=== PATIENT | male | born 1950 | race Caucasian/White ===

== ENCOUNTER 2021-04-03 15:14 | Outpatient (REF) | payer MEDICARE, SELFPAY ==
[2021-04-03 16:08] LABS: Bilirubin Negative (Negative); Blood Negative (Negative); Clarity Clear (Clear); Glucose Negative (Negative); Ketones Negative (Negative); Leukocyte Esterase Negative (Negative); Nitrite Negative (Negative); Specific Gravity >= 1.030 (1.005-1.025); Urobilinogen 0.2 EU/dL (Up TO 0.2); pH 5.5 (5-8)
[2021-04-03 16:45] LABS: COMMENT (LAB VIEW ONLY) 142.16 mg/dL; Microalb ug/mg Crea 11.3 ug/mg Cr
[2021-04-03 17:04] LABS: ALT 30 U/L (16-63); AST 17 U/L (15-37); Albumin 3.5 g/dL (3.4-5.0); Alkaline Phosphatase 92 U/L (46-116); Anion Gap 10.5 mmol/L (3-11); BUN 18 mg/dL (7-18); Bilirubin, Total 0.3 mg/dL (0.2-1.0); CO2 26.5 mmol/L (21.0-32.0); CREATININE 0.9 mg/dL (0.70-1.30); Calcium 8.6 mg/dL (8.5-10.1); Calculated LDL 54 mg/dL (<100); Chloride 104 mmol/L (98-107); Cholesterol 124 mg/dL (<200); Glucose 135 mg/dL (74-106); HDL Cholesterol 39 mg/dL (40-60); Potassium 4.4 mmol/L (3.5-5.1); Sodium 141 mmol/L (136-145); Total Protein 6.5 g/dL (6.4-8.2); Triglyceride 156 mg/dL (<150)
[2021-04-03 17:26] LABS: NT-proBNP 927 pg/mL (<300)
== END 2021-04-03 15:15 | disposition home or self-care (01) ==
LOC: NCHCN 15:14
PROVIDERS: Visit Provider Nurse Practitioner Family
DX: E78.5 Hyperlipidemia, unspecified (principal); R73.03 Prediabetes; R39.9 Unspecified symptoms and signs involving the genitourinary system; I10 Essential (primary) hypertension
CPT/HCPCS: 80053; 80061; 81003; 82043; 82570; 83036; 83880

== ENCOUNTER 2021-05-06 00:27 | Outpatient (CLI) | payer MEDICARE, OTHER, SELFPAY ==
--- NOTE | 2021-05-06 14:00 | DI.US_ITS ---
APPROVED REPORT EXAM: Comprehensive 2D, Doppler, and color-flow Echocardiogram Patient Location: Out-Patient Indications: Left ventricular failure, HTN, Smoker Other Information Study Quality: Fair. Technically limited study due to body habitus, smoker. Conclusion Normal left ventricular wall thickness and chamber size. Estimated ejection fraction is 55 to 60%. Wall motion is normal Normal right ventricular size and systolic function Both atria are normal in size The aortic valve is mildly sclerotic and trileaflet without stenosis or regurgitation Normal mitral valve with trace regurgitation Normal tricuspid valve with trace regurgitation. Estimated right ventricular systolic pressure is 33 mmHg Wall motion Left Ventricle The left ventricle is normal size. The left ventricular systolic function is normal. The left ventric ular ejection fraction is within the normal range. There is normal left ventricular wall thickness. T here is normal LV segmental wall motion. There is no ventricular septal defect visualized. LVEF is 55 -60%. Right Ventricle The right ventricle is normal size. The right ventricular systolic function is normal. The RVSP is 33 .4 mmHg. Atria The left atrium size is normal. The right atrium size is normal. The interatrial septum is intact wit h no evidence for an atrial septal defect. Aortic Valve The aortic valve is mildly sclerotic Aortic valve is trileaflet. There is no aortic valvular stenosis . No aortic regurgitation is present. Mitral Valve The mitral valve is normal in structure. No evidence of mitral valve stenosis. Trace mitral regurgita tion. Tricuspid Valve The tricuspid valve is normal in structure. There is no tricuspid valve stenosis. Trace tricuspid reg urgitation. Pulmonic Valve The pulmonary valve is normal in structure. There is no pulmonic valvular stenosis. There is no pulmo brenda valvular regurgitation. Great Vessels The aortic root is normal in size. The ascending aorta is normal in size. Aortic arch is normal in ca liber. The IVC collapses <50% with inspiration. Pericardium There is no pericardial effusion. 2D Dimensions IVSD d PLAX 1.14 cm M: 0.6-1.2 LV Vol A2C d MOD 151.0 mL LVPW d PLAX 1.12 cm M: 0.6 - 1.2 LV Vol A4C d MOD 151.9 mL LVID d PLAX 4.74 cm M: 4.2 - 5.8 LA vol/ BSA A2C s A-L 26.1 mL/m2 LVDs 3.35 cm M: 2.5 - 4.0 LA vol/ BSA A4C s A-L 16.8 mL/m2 Ao Root d 3.24 cm M: 3.1 - 3.7 LA Vol/ BSA Biplane s A-L 22.3 mL/m2 RA Area A4C 13.05 cm2 LA Area A4C s MOD 13.97 cm2 RA Vol/ BSA A4C s A-L 15.2 mL/m2 LA Area A2C s MOD 18.53 cm2 Ao Asc Diam d 3.41 cm M: 2.6 - 3.4 LV EF A4C MOD 53.9 % LV EF Teichholz 55.1 % LV EF A2C MOD 52.5 % LVEF (Martinez's) 53.05 % M: 52 - 72 LV EF Biplane MOD 53.1 % LV Volume 110.65 mL M: 62 - 150 SV 80.77 mL LV Volume Index 50.29 mL/m2 M: 34 - 74 SV Index 36.62 mL/m2 LV Vol Biplane MOD 152.3 mL FS 28.60 % M-Mode TAPSE 2.22 cm (M/F) >1.7 LV Diastology MV E' medial 0.061 (>0.07 m/s) E/A Ratio 0.7 LV E/e MED 9.00 (<14) MV E Vmax 0.55 (0.4-1.3 m/s) MV E' lateral 0.068 (>0.1 m/s) MV A Vmax 0.75 (0.4-1.3 m/s) LV E/e LAT 8.05 (<14) MV E/A Ratio 0.72 MV E/E' medial 9.04 MV E/E' lateral 8.07 Aortic Valve LVOT Area 3.09 cm2 AoV Area Vmax 2.27 cm2 LVOT Vmax 1.00 m/s AoV Area/ BSA (Vmax) 1.03 cm2/m2 LVOT Mean Jj. 0.70 m/s OPAL Mean Jj. 2.23 cm2 LVOT Peak Grad 4.0 mmHg OPAL Mean Jj. Index 1.01 cm2/m2 LVOT Mean Grad 2.2 mmHg LVOT VTI 0.192 m LVOT Diam s 1.95 cm AoV Vmax 1.36 m/s Velocity Ratio 0.73 AoV Mean Jj. 0.98 m/s AoV Peak Grad 7.4 mmHg LVOT SV 59.37 mL AoV Mean Grad 4.2 mmHg AoV VTI 0.249 m AoV Area VTI 2.38 cm2 AoV Area/ BSA (VTI) 1.08 cm/m2 Mitral Valve MV DT 331 (160-240 msec) MV PHT 96 msec MV Area PHT 2.29 cm2 MV VTI 0.203 m MV Area VTI 2.92 (4.0-6.0 cm2) Pulmonary Valve PV Vmax 0.99 (0.5-1.5 m/s) RVOT Peak Gr. 2.51 mmHg PV Peak Grad 4.0 mmHg RVOT Mean Gr. 1.20 mmHg PV Mean Grad 2.4 mmHg RVOT VTI 0.160 m PV VTI 0.181 m RVOT Vmax 0.79 m/s Tricuspid Valve TR Peak Grad 25.3 mmHg TR Vmax 2.52 m/s RA Pressure 8.00 mmHg RVSP (TR) 33.4 mmHg
== END 2021-05-06 00:47 ==
PROVIDERS: Visit Provider Nurse Practitioner Family
DX: I50.1 Left ventricular failure, unspecified (principal); I11.0 Hypertensive heart disease with heart failure; E78.5 Hyperlipidemia, unspecified; F17.210 Nicotine dependence, cigarettes, uncomplicated; R93.9 Diagnostic imaging inconclusive due to excess body fat of patient; I35.8 Other nonrheumatic aortic valve disorders
CPT/HCPCS: 93306

== ENCOUNTER 2021-05-07 22:40 | Outpatient (REF) | payer MEDICARE, SELFPAY ==
[2021-05-08 18:00] LABS: PSA, Screening 3.8 ng/mL (0.0-6.5)
== END 2021-05-07 22:41 | disposition home or self-care (01) ==
LOC: NCHCN 22:40
PROVIDERS: Visit Provider Nurse Practitioner Family
DX: Z12.5 Encounter for screening for malignant neoplasm of prostate; R39.9 Unspecified symptoms and signs involving the genitourinary system
CPT/HCPCS: 84153

== ENCOUNTER 2021-05-24 11:46 | Outpatient (CLI) | payer MEDICARE, SELFPAY ==
[2021-05-26 15:33] LABS: COVID-19 RT-PCR UVMMC Result Negative (Negative)
== END 2021-05-24 11:47 | disposition home or self-care (01) ==
PROVIDERS: Visit Provider Nurse Practitioner Family
DX: Z20.822 Contact with and (suspected) exposure to COVID-19 (principal)
CPT/HCPCS: U0003

== ENCOUNTER 2021-08-31 14:45 | Outpatient (REF) | payer MEDICARE, SELFPAY ==
[2021-08-31 20:31] LABS: Hemoglobin A1C 6.9 % (<5.7)
== END 2021-08-31 14:46 | disposition home or self-care (01) ==
LOC: NCHCN 14:45
PROVIDERS: PCP Nurse Practitioner Family; Visit Provider Nurse Practitioner Family
DX: R73.03 Prediabetes (principal); E78.5 Hyperlipidemia, unspecified; I10 Essential (primary) hypertension
CPT/HCPCS: 83036

== ENCOUNTER 2021-09-20 20:29 | Outpatient (REF) | payer MEDICARE, SELFPAY ==
[2021-09-21 12:13] LABS: COVID-19 RT-PCR UVMMC Result Negative (Negative)
== END 2021-09-20 20:30 | disposition home or self-care (01) ==
LOC: NCHCN 20:29
PROVIDERS: PCP Nurse Practitioner Family; Visit Provider Nurse Practitioner Family
DX: Z20.822 Contact with and (suspected) exposure to COVID-19 (principal)
CPT/HCPCS: U0003; U0005

== ENCOUNTER 2021-09-24 15:48 | Outpatient (REF) | payer MEDICARE, OTHER, SELFPAY ==
[2021-09-25 12:06] LABS: COVID-19 RT-PCR UVMMC Result Positive (Negative)
== END 2021-09-24 15:49 | disposition home or self-care (01) ==
LOC: NCHCN 15:48
PROVIDERS: PCP Nurse Practitioner Family; Visit Provider Nurse Practitioner Family
DX: Z20.822 Contact with and (suspected) exposure to COVID-19 (principal)
CPT/HCPCS: U0003; U0005

== ENCOUNTER 2021-09-25 18:27 | Outpatient (REF) | payer MEDICARE, OTHER, SELFPAY ==
[2021-09-26 15:04] LABS: COVID-19 RT-PCR UVMMC Result Positive (Negative)
== END 2021-09-25 18:28 | disposition home or self-care (01) ==
LOC: NCHCN 18:27
PROVIDERS: PCP Nurse Practitioner Family; Visit Provider Nurse Practitioner Family
DX: Z20.822 Contact with and (suspected) exposure to COVID-19 (principal)
CPT/HCPCS: U0003; U0005

== ENCOUNTER 2021-11-21 21:43 | Outpatient (REF) | payer MEDICARE, OTHER, SELFPAY ==
[2021-11-21 16:38] LABS: Hemoglobin A1C 6.8 % (<5.7)
== END 2021-11-21 21:44 | disposition home or self-care (01) ==
LOC: NCHCN 21:43
PROVIDERS: PCP Nurse Practitioner Family; Visit Provider Nurse Practitioner Family
DX: E11.9 Type 2 diabetes mellitus without complications (principal)
CPT/HCPCS: 83036

== ENCOUNTER 2022-02-20 16:19 | Outpatient (REF) | payer MEDICARE, SELFPAY ==
[2022-02-20 18:26] LABS: ALT 29 U/L (16-63); AST 17 U/L (15-37); Albumin 3.6 g/dL (3.4-5.0); Alkaline Phosphatase 91 U/L (46-116); Anion Gap 7.3 mmol/L (3-11); BUN 21 mg/dL (7-18); Bilirubin, Total 0.3 mg/dL (0.2-1.0); CO2 28.7 mmol/L (21.0-32.0); CREATININE 0.9 mg/dL (0.70-1.30); Calcium 8.8 mg/dL (8.5-10.1); Calculated LDL 58 mg/dL (<100); Chloride 100 mmol/L (98-107); Cholesterol 114 mg/dL (<200); Estimated GFR 91.31 (mL/min/1.73m2); Glucose 123 mg/dL (74-106); HDL Cholesterol 36 mg/dL (40-60); Potassium 4.7 mmol/L (3.5-5.1); Sodium 136 mmol/L (136-145); Total Protein 6.7 g/dL (6.4-8.2); Triglyceride 100 mg/dL (<150)
[2022-02-20 18:31] LABS: Hemoglobin A1C 7.1 % (<5.7)
== END 2022-02-20 16:20 | disposition home or self-care (01) ==
LOC: NCHCN 16:19
PROVIDERS: PCP Nurse Practitioner Family; Visit Provider Nurse Practitioner Family
DX: E11.9 Type 2 diabetes mellitus without complications (principal); E78.5 Hyperlipidemia, unspecified; I10 Essential (primary) hypertension
CPT/HCPCS: 80053; 80061; 83036

== ENCOUNTER 2022-04-07 17:41 | Outpatient (REF) | payer MEDICARE, SELFPAY ==
[2022-04-07 18:41] LABS: Hemoglobin A1C 6.8 % (<5.7)
== END 2022-04-07 17:42 | disposition home or self-care (01) ==
LOC: NCHCN 17:41
PROVIDERS: PCP Nurse Practitioner Family; Visit Provider Nurse Practitioner Family
DX: E11.9 Type 2 diabetes mellitus without complications (principal); I10 Essential (primary) hypertension; F17.210 Nicotine dependence, cigarettes, uncomplicated
CPT/HCPCS: 83036

== ENCOUNTER 2022-04-30 15:44 | Outpatient (REF) | payer MEDICARE, SELFPAY ==
[2022-04-30 14:59] LABS: Hemoglobin A1C 6.9 % (<5.7)
== END 2022-04-30 15:45 | disposition home or self-care (01) ==
LOC: NCHCN 15:44
PROVIDERS: PCP Nurse Practitioner Family; Visit Provider Nurse Practitioner Family
DX: E11.9 Type 2 diabetes mellitus without complications (principal); I10 Essential (primary) hypertension
CPT/HCPCS: 83036

== ENCOUNTER 2022-07-22 15:56 | Outpatient (REF) | payer MEDICARE, SELFPAY ==
[2022-07-23 18:10] LABS: PSA, Screening 11.5 ng/mL (<=6.5)
== END 2022-07-22 15:57 | disposition home or self-care (01) ==
LOC: NCHCN 15:56
PROVIDERS: PCP Nurse Practitioner Family; Visit Provider Nurse Practitioner Family
DX: R39.89 Other symptoms and signs involving the genitourinary system (principal); Z12.5 Encounter for screening for malignant neoplasm of prostate
CPT/HCPCS: 84153